=== PATIENT | female | born 1985 | race Hispanic/Latino ===

== ENCOUNTER 2019-03-31 03:58 | Emergency (ER) | payer BC ==
[2019-03-31 04:34] LABS: #Basophils 0.1 thou/uL (0.0-0.2); #Eosinphils 0.2 thou/uL (0.0-0.7); #Lymphocytes 2.5 thou/uL (1.20-3.40); #Monocytes 1.1 thou/uL (0.11-0.59); #Neutrophils 7.9 thou/uL (1.40-6.50); %Basophils 0.6 % (0.0-1.0); %Eosinophils 1.6 % (0.0-10.0); %Lymphocytes 20.9 % (21.0-51.0); %Monocytes 9.6 % (0.0-10.0); %Neutrophils 67.3 % (42.0-75.0); Hemoglobin 13.4 g/dL (12.0-16.0); Mean Corpuscular HGB CONC 32.5 g/dL (32.0-36.0); Mean Corpuscular Hemoglobin 31.6 pg (27.0-31.0); Mean Corpuscular Volume 97.1 fL (78.0-98.0); Mean Platelet Volume 6.5 fL (7.4-10.4); Platelet Count 343 thou/uL (130-400); RBC Distribution Width 12.3 % (11.5-14.5); Red Blood Cell (RBC) Count 4.23 mill/uL (4.20-5.40); White Blood Cell (WBC) Count 11.8 thou/uL (4.8-10.8)
[2019-03-31 04:57] LABS: ALT (SGPT) 28 U/L (8-55); AST (SGOT) 16 U/L (5-34); Alkaline Phosphatase 101 U/L (40-150); Anion Gap 13 mmol/L (10-20); BUN (Urea Nitrogen) 16 mg/dL (7.0-18.7); Bilirubin, Total 0.4 mg/dL (0.2-1.2); Calc. Creatinine Clearance 0 mL/min (70-130); Calcium 9.2 mg/dL (7.8-10.44); Carbon Dioxide 23 mmol/L (22-29); Chloride 108 mmol/L (98-107); Estimated GFR-MDRD 84; Glucose 128 mg/dL (70-105); Sodium 140 mmol/L (136-145)
[2019-03-31] MEDS ORDERED: Ketorolac Tromethamine 30 MG/ML VIAL ONE (06:22)
[2019-03-31] MEDS ORDERED: HYDROcodone/Acetaminophen 10/325 mg Tablet ONE (06:22)
--- NOTE | 2019-03-31 08:18 | ULT ---
RIGHT UPPER EXTREMITY DOPPLER VEIN ULTRASOUND: Date: 03/31/19 Pedro scale and Doppler color flow imaging with spectral analysis performed. INDICATION: Erythema/edema right upper extremity. FINDINGS: There is appropriate compressibility and flow within the imaged deep vein system of the right upper e xtremity without evidence of thrombus. IMPRESSION: No deep venous thrombosis is documented within the visualized right upper extremity. POS: HORACIOK
== END 2019-03-31 07:32 | disposition home or self-care (01) ==
LOC: ERS 03:58
DX: L03.113 Cellulitis of right upper limb (principal); K21.9 Gastro-esophageal reflux disease without esophagitis; G43.909 Migraine, unspecified, not intractable, without status migrainosus; J45.909 Unspecified asthma, uncomplicated; F41.9 Anxiety disorder, unspecified; F32.9 Major depressive disorder, single episode, unspecified; F17.290 Nicotine dependence, other tobacco product, uncomplicated; Z79.899 Other long term (current) drug therapy
CPT/HCPCS: 36415; 80053; 82550; 83605; 85025; 85379; 96372; J1885

== ENCOUNTER 2019-07-23 08:11 | Day surgery (SDC) | payer BC ==
[2019-07-23] MEDS ORDERED: Fentanyl 100 MCG/2 ML VIAL ONE ×3 (08:59→15:16)
[2019-07-23] MEDS ORDERED: HYDROmorphone 0.5 MG/0.5 ML SYRINGE ONE (08:59)
[2019-07-23] MEDS ORDERED: Midazolam HCl 2 mg/2 ml Vial ONE (08:59)
[2019-07-23] MEDS ORDERED: Ondansetron PF 4 MG/2 ML Vial ONE (10:21)
[2019-07-23] MEDS ORDERED: Dexamethasone 20 MG/5 ML VIAL ONE (10:21)
[2019-07-23] MEDS ORDERED: PROPOFOL 200 MG/20 ML VIAL ONE (10:21)
[2019-07-23] MEDS ORDERED: PHENYLEPHRINE-NS 100 MCG/ML 10 ML SYRINGE ONE (10:21)
[2019-07-23] MEDS ORDERED: Lidocaine 1% PF 5 ML VIAL ONE (10:21)
[2019-07-23] MEDS ORDERED: Lidocaine 1% w/Epinephrine 1:100K 20 ML VIAL ONE (10:58)
[2019-07-23] MEDS ORDERED: Promethazine HCl 25 MG/ML VIAL ONE (13:16)
[2019-07-23] MEDS ORDERED: HYDROcodone/Acetaminophen 5/325 mg Tablet ONE (15:12)
--- NOTE | 2019-07-24 08:22 | OP ---
DATE OF PROCEDURE: 07/23/2019 PREOPERATIVE DIAGNOSIS: Large right obstructive thyroid mass. POSTOPERATIVE DIAGNOSIS: Large right obstructive thyroid mass, path pending. PROCEDURES PERFORMED: Right thyroid lobectomy. BLOOD LOSS: Negligible. FINDINGS: Very large firm lesion involving the entire right thyroid lobe. DESCRIPTION OF OPERATION: After consent was obtained, the patient was identified, brought to the operating room, and placed on operating room table in supine position. General endotracheal anesthesia was obtained with laryngeal nerve monitoring endotracheal tube. The patient was positioned for surgery. The neck was extended and the soft tissues were taped and reflected away from the operative site. The natural skin crease was identified and infiltrated with 1% lidocaine with 1:100,000 epinephrine and after was prepped and draped for surgery, we made an incision in the natural skin crease through the skin and subcutaneous tissues. We then went transected through the platysma and elevated subplatysmal flap. The strap muscles were divided in midline and a large right thyroid mass was encountered. We then dissected down to the capsule and then delivered the thyroid mass into the surgical wound. At this point, we were able to transect the inferior middle and superior vessels and suture ligate them. Dissection then continued, the recurrent laryngeal nerve was identified and dissected to its insertion. The parathyroid glands were similarly preserved. The thyroid was elevated from the pretracheal plane in a hemostatic fashion. The isthmus was transected. The thyroid was removed and hemostasis was obtained. Valsalva failed to reveal any bleeding and some fibrillar Surgicel was placed in the deep aspect of the wound. Decision was made not to place the drain. The wound was then closed in layers with Monocryl used to reapproximate the strap muscles and the platysma and subcutaneous tissues and the skin was closed with 5-0 running Prolene. Sterile dressing was applied. The patient was awakened and taken to the recovery room in stable condition prior to discharge home. Job ID: [id number]
== END 2019-07-23 17:35 | disposition home or self-care (01) ==
LOC: SDC 08:11
PROVIDERS: ATTEND Specialist
PROC: 0GTH0ZZ Resection of Right Thyroid Gland Lobe, Open Approach (ICD-10-PCS; principal; 2019-07-23)
DX: E04.1 Nontoxic single thyroid nodule (principal); J45.909 Unspecified asthma, uncomplicated; F41.9 Anxiety disorder, unspecified; E66.9 Obesity, unspecified; K21.9 Gastro-esophageal reflux disease without esophagitis; Z79.899 Other long term (current) drug therapy; Z68.33 Body mass index [BMI] 33.0-33.9, adult
CPT/HCPCS: 85014; 88307; 88331; 88334; J0690; J1100; J1170; J2001; J2250; J2405; J2550; J2704; J3010

== ENCOUNTER 2019-09-09 10:09 | Outpatient (CLI) | payer BC | END 2019-09-09 10:10 | disposition home or self-care (01) | LOC: CTENTCT 10:09 | PROVIDERS: ATTEND Specialist | DX: J32.9 Chronic sinusitis, unspecified (principal) | CPT/HCPCS: 70486 ==

== ENCOUNTER 2019-12-22 23:18 | Emergency (ER) | payer BC ==
[2019-12-23] MEDS ORDERED: Lorazepam 2 MG/ML VIAL ONE (00:08)
[2019-12-23 00:21] LABS: Bilirubin Negative (Negative); Blood, Urine 2+ (Negative); Clarity Turbid (Clear); Glucose, Urine (Dipstick) Normal (Negative); Leukocyte 75 Leu/uL (Negative); Nitrite 2+ (Negative); Pregnancy Test - Urine (BHCG) Negative (Negative); Pregu Control Background? CLEAR/WHITE (CLR/WHITE); Pregu Control Bar Appear? YES (CONTROL BAR); Protein, Urine (Dipstick) 50 mg/dL (Neg-Trace); Specific Gravity 1.034 (1.002-1.036); Squamous Epithelial 0-3 HPF (0-3); Urobilinogen Normal mg/dL (Less than 2)
[2019-12-23 00:32] LABS: Bacteria/HPF 4+ HPF (None Seen)
[2019-12-23 00:35] LABS: #Basophils 0.1 thou/uL (0.0-0.2); #Eosinphils 0.1 thou/uL (0.0-0.7); #Lymphocytes 2.8 thou/uL (1.20-3.40); #Monocytes 0.8 thou/uL (0.11-0.59); #Neutrophils 8.5 thou/uL (1.40-6.50); %Basophils 0.6 % (0.0-1.0); %Eosinophils 0.4 % (0.0-10.0); %Lymphocytes 22.7 % (21.0-51.0); %Monocytes 6.8 % (0.0-10.0); %Neutrophils 69.4 % (42.0-75.0); Hemoglobin 15.3 g/dL (12.0-16.0); Mean Corpuscular HGB CONC 33.2 g/dL (32.0-36.0); Mean Corpuscular Volume 93.4 fL (78.0-98.0); Mean Platelet Volume 7.3 fL (7.4-10.4); Platelet Count 350 thou/uL (130-400); RBC Distribution Width 11.5 % (11.5-14.5); Red Blood Cell (RBC) Count 4.92 mill/uL (4.20-5.40); White Blood Cell (WBC) Count 12.2 thou/uL (4.8-10.8)
[2019-12-23 00:56] LABS: ALT (SGPT) 29 U/L (8-55); AST (SGOT) 21 U/L (5-34); Albumin 4.3 g/dL (3.5-5.0); Alkaline Phosphatase 91 U/L (40-110); Anion Gap 12 mmol/L (10-20); BUN (Urea Nitrogen) 17 mg/dL (7.0-18.7); Bilirubin, Total 0.5 mg/dL (0.2-1.2); Calc. Creatinine Clearance 0 mL/min (70-130); Calcium 9.2 mg/dL (7.8-10.44); Carbon Dioxide 27 mmol/L (22-29); Chloride 105 mmol/L (98-107); Estimated GFR-MDRD 65; Glucose 100 mg/dL (70-105); Potassium 3.9 mmol/L (3.5-5.1); Protein, Total 7.3 g/dL (6.0-8.3); Sodium 140 mmol/L (136-145)
[2019-12-23 01:08] LABS: Troponin I Less than 0.010 ng/mL (< 0.028)
--- NOTE | 2019-12-23 08:43 | CT ---
PRELIMINARY REPORT/[facility]/EMERGENCY AFTER HOURS PROCEDURE: EXAM: CTA Chest with Intravenous Contrast CLINICAL HISTORY: ER 20.. SOB/ Chest pain; 34F presents to the ED with c/o high blood pressure, nausea, headache, epist axis and light headed ness. Pt tells me that she had a thyroid tumor with right thyroid removal appro ximately 5 or 6 months ago. TECHNIQUE: Axial CTA images of the chest with intravenous contrast. MIP reconstructed images were created and re viewed. CONTRAST: With; ISOVUE 370, 61ML COMPARISON: None provided. FINDINGS: PULMONARY ARTERIES There is no intraluminal filling defect suspicious for PE. AORTA No thoracic aortic aneurysm or dissection. LUNGS The lungs are clear. No pulmonary mass. No focal airspace consolidation. PLEURAL SPACES No pleural effusion. No pneumothorax. HEART AND MEDIASTINUM No cardiomegaly. No significant pericardial effusion. LYMPH NODES No lymphadenopathy. BONES No focal osseous abnormality or acute fracture. CHEST WALL AND UPPER ABDOMEN Hepatic steatosis. Status post cholecystectomy. The chest wall is unremarkable. IMPRESSION: 1. No evidence of pulmonary embolism. 2. No significant cardiopulmonary finding. 3. Hepatic steatosis and prior cholecystectomy. ELECTRONICALLY SIGNED BY: Irwin Cabrera M.D. Dec 23, 2019 2:03:25 AM [employer] This report is intended for review by the ordering physician only, in accordance of law. If you recei ve this report in error, please call [facility] at [phone]. FINAL REPORT EMERGENCY AFTER HOURS CTA CHEST WITH CONTRAST: FINDINGS/IMPRESSION: I agree with the findings and impression given in the preliminary report per [facility] physici an. No evidence of pulmonary thromboembolism.
[2019-12-23] MEDS ORDERED: Iopamidol-370 76% 500 ML 1 ML ONE (13:28)
== END 2019-12-23 03:06 | disposition home or self-care (01) ==
LOC: ERS 23:18
DX: F41.9 Anxiety disorder, unspecified (principal); N39.0 Urinary tract infection, site not specified; R07.9 Chest pain, unspecified; I10 Essential (primary) hypertension; K21.9 Gastro-esophageal reflux disease without esophagitis; G43.909 Migraine, unspecified, not intractable, without status migrainosus; J45.909 Unspecified asthma, uncomplicated; F32.9 Major depressive disorder, single episode, unspecified; F17.290 Nicotine dependence, other tobacco product, uncomplicated; Z79.899 Other long term (current) drug therapy
CPT/HCPCS: 36415; 71275; 80053; 81003; 81015; 81025; 84443; 84484; 85025; 85379; 87077; 87086; 87186; 93005; 96361; 96374; J2060; Q9967